=== PATIENT | female | born 1980 | race Hispanic/Latino ===

== ENCOUNTER 2019-04-20 08:13 | Outpatient (CLI) | payer BC ==
--- NOTE | 2019-04-20 08:51 | MMO ---
Bilateral MAMMO Bilat Screen [facility]. CLINICAL HISTORY: Patient is 39 years old and is seen for screening. The patient has no family history of breast cancer. The patient has no personal history of cancer. VIEWS: The views performed were: bilateral craniocaudal with tomosynthesis and bilateral mediolateral oblique with tomosynthesis. This study has been interpreted with the assistance of computer-aided detection. MAMMOGRAM FINDINGS: There are scattered fibroglandular densities. There are no suspicious masses, suspicious calcifications, or new areas of architectural distortion. IMPRESSION: THERE IS NO MAMMOGRAPHIC EVIDENCE OF MALIGNANCY. A ROUTINE FOLLOW-UP MAMMOGRAM IN 1 YEAR IS RECOMMENDED. THE RESULTS OF THIS EXAM WERE SENT TO THE PATIENT. ACR BI-RADS Category 1 - Negative MAMMOGRAPHY NOTE: 1. A negative mammogram report should not delay a biopsy if a dominant of clinically suspicious mass is present. 2. Approximately 10% to 15% of breast cancers are not detected by mammography. 3. Adenosis and dense breasts may obscure an underlying neoplasm. Reported by: PUNEET BLANCO MD Electonically Signed: [id number]
== END 2019-04-20 08:14 | disposition home or self-care (01) ==
LOC: BICMAMMO 08:13
PROVIDERS: ATTEND Family Medicine
DX: Z12.31 Encounter for screening mammogram for malignant neoplasm of breast (principal)
CPT/HCPCS: 77063; 77067

== ENCOUNTER 2020-05-15 13:49 | Outpatient (CLI) | payer BC | END 2020-05-15 13:50 | disposition home or self-care (01) | LOC: BICMAMMO 13:49 | PROVIDERS: ATTEND Family Medicine | DX: Z12.31 Encounter for screening mammogram for malignant neoplasm of breast (principal); Z80.3 Family history of malignant neoplasm of breast | CPT/HCPCS: 77063; 77067 ==

== ENCOUNTER 2021-07-12 08:08 | Outpatient (CLI) | payer BC | END 2021-07-12 08:09 | disposition home or self-care (01) | LOC: BICMAMMO 08:08 | PROVIDERS: ATTEND Family Medicine | DX: Z12.31 Encounter for screening mammogram for malignant neoplasm of breast (principal); Z80.3 Family history of malignant neoplasm of breast | CPT/HCPCS: 77063; 77067 ==

== ENCOUNTER 2021-12-02 09:18 | Outpatient (CLI) | payer BC | END 2021-12-02 09:19 | disposition home or self-care (01) | LOC: BICRAD 09:18 | PROVIDERS: ATTEND Family Medicine | DX: R05.9 Cough, unspecified (principal) | CPT/HCPCS: 71046 ==

== ENCOUNTER 2022-10-03 11:58 | Outpatient (CLI) | payer BC | END 2022-10-03 11:59 | disposition home or self-care (01) | LOC: BICMAMMO 11:58 | PROVIDERS: ATTEND Family Medicine | DX: Z12.31 Encounter for screening mammogram for malignant neoplasm of breast (principal); Z80.3 Family history of malignant neoplasm of breast | CPT/HCPCS: 77063; 77067 ==

== ENCOUNTER 2022-10-03 12:29 | Outpatient (CLI) | payer BC | END 2022-10-03 12:30 | disposition home or self-care (01) | LOC: RAD 12:29 | PROVIDERS: ATTEND Family Medicine | DX: M25.561 Pain in right knee (principal) ==

== ENCOUNTER 2022-10-30 12:01 | Outpatient (CLI) | payer BC | END 2022-10-30 12:02 | disposition home or self-care (01) | LOC: BICULT 12:01 | PROVIDERS: ATTEND Family Medicine | DX: R10.2 Pelvic and perineal pain (principal); R10.83 Colic; R93.89 Abnormal findings on diagnostic imaging of other specified body structures; N85.8 Other specified noninflammatory disorders of uterus | CPT/HCPCS: 76856 ==

== ENCOUNTER 2023-01-12 08:22 | Outpatient (CLI) | payer BC | END 2023-01-12 08:23 | disposition home or self-care (01) | LOC: BICMRI 08:22 | PROVIDERS: ATTEND Orthopaedic Surgery | DX: M23.91 Unspecified internal derangement of right knee (principal); S83.281A Other tear of lateral meniscus, current injury, right knee, initial encounter; M22.2X1 Patellofemoral disorders, right knee; S83.421A Sprain of lateral collateral ligament of right knee, initial encounter ==

== ENCOUNTER 2023-02-27 06:31 | Day surgery (SDC) | payer BC ==
[2023-02-25 15:04] VITALS: BMI 40.3
[2023-02-27] MEDS ORDERED: Lidocaine 2% PF 5 ML VIAL ONE (07:35)
[2023-02-27] MEDS ORDERED: EPINEPHrine 1 MG/ML VIAL ONE (07:35)
[2023-02-27] MEDS ORDERED: PROPOFOL 20 ML ONE ×2 (07:36→08:49)
[2023-02-27] MEDS ORDERED: Bupivacaine PF 0.5% 30 ML VIAL ONE (07:36)
[2023-02-27] MEDS ORDERED: fentaNYL 50 mcg/mL 1 mL Vial ONE (08:49)
[2023-02-27] MEDS ORDERED: CEFAZOLIN 2 GM VIAL ONE (08:54)
[2023-02-27] MEDS ORDERED: Sodium Chloride 0.9% 100 ML ONE (08:55)
[2023-02-27] MEDS ORDERED: Lidocaine 1% PF 5 ML VIAL ONE (09:09)
[2023-02-27] MEDS ORDERED: PHENYLEPHRINE-NS 100 MCG/ML 10 ML SYRINGE ONE (09:28)
[2023-02-27] MEDS ORDERED: ePHEDrine Sulfate 50 MG/10 ML VIAL ONE (09:31)
[2023-02-27] MEDS ORDERED: Ondansetron PF 4 MG/2 ML Vial ONE (09:52)
== END 2023-02-27 11:41 | disposition home or self-care (01) ==
LOC: SDC 06:31
PROVIDERS: ATTEND Orthopaedic Surgery
PROC: 0SQC4ZZ Repair Right Knee Joint, Percutaneous Endoscopic Approach (ICD-10-PCS; principal; 2023-02-27)
DX: S83.271A Complex tear of lateral meniscus, current injury, right knee, initial encounter (principal); E78.00 Pure hypercholesterolemia, unspecified; Z88.8 Allergy status to other drugs, medicaments and biological substances; X58.XXXA Exposure to other specified factors, initial encounter
CPT/HCPCS: J0171; J2001; J2405; J2704; J3010; J3490; S0020

== ENCOUNTER 2024-10-25 08:58 | Outpatient (CLI) | payer BC | END 2024-10-25 08:59 | disposition home or self-care (01) | LOC: BICMAMMO 08:58 | PROVIDERS: ATTEND Obstetrics & Gynecology | DX: Z12.31 Encounter for screening mammogram for malignant neoplasm of breast (principal); Z80.3 Family history of malignant neoplasm of breast | CPT/HCPCS: 77063; 77067 ==